=== PATIENT | male | born 1985 | race American Indian/Alaskan Native ===

== ENCOUNTER 2020-06-28 21:25 | Emergency (ER) | payer SELFPAY ==
[2020-06-29 00:05] VITALS: BP 125/78
--- NOTE | 2020-06-29 00:06 | Emergency Department Report ---
ED Male HPI - General Chief complaint: Urogenital-Male Stated complaint: SCRAPE IN PRIVATE AREA Source: patient Mode of arrival: Ambulatory Limitations: No Limitations - History of Present Illness Initial comments: Patient is a 34-year-old male with no past medical history presents to the ED with complaint of acute onset painful swollen ulcerated lesion in the penile shaft and glans penis after having "rough" sexual intercourse with his girlfriend about a week ago. Patient states that in the process of sexual intercourse he experience abrasions in the glans penis and the foreskin since he is not circumcised and that the swelling on the pain have worsened in the last 5 days. Patient states that he noticed that there was purulent discharge from the ulcerated lesion and decided come to the ED for evaluation. Patient denies fever, chills, nausea, vomiting, abdominal pain, testicular pain, scrotal swelling or pain, cough, sore throat, dysuria, urinary frequency and urgency or diarrhea. MD Complaint: penile discharge, other (painful penile shaft with ulcerated rash) -: Sudden, days(s) (5) Location: penis Radiation: none Severity: severe Severity scale (0 -10): 7 Quality: aching, burning, sharp Consistency: constant Improves with: none Worsens with: palpation, sexual intercourse new sexual partner denies other symptoms, discharge, rash (ulcerated lesion on penile shaft). denies: swelling, mass, urinary retention, blood in urine, dysuria, fever, nausea/vomiting, incontinence, other - Related Data Sexually active: Yes Previous Rx's Medication Instructions Recorded Last Taken Type Clindamycin [Clindamycin CAP] 300 mg PO Q8HR #60 capsule 06/29/20 Unknown Rx Nystatin Oint [Mycostatin Oint] 1 applicatio TP TID #1 tube 06/29/20 Unknown Rx metroNIDAZOLE [Flagyl TAB] 500 mg PO Q12HR #14 tab 06/29/20 Unknown Rx Allergies Allergy/AdvReac Type Severity Reaction Status Date / Time No Known Allergies Allergy Unverified 06/28/20 21:32 ED Review of Systems ROS: Stated complaint: SCRAPE IN PRIVATE AREA Other details as noted in HPI Constitutional: denies: chills, fever Eyes: denies: eye pain, eye discharge, vision change ENT: denies: ear pain, throat pain Respiratory: denies: cough, shortness of breath, wheezing Cardiovascular: denies: chest pain, palpitations Endocrine: no symptoms reported Gastrointestinal: denies: abdominal pain, nausea, diarrhea Genitourinary: denies: urgency, dysuria Musculoskeletal: denies: back pain, joint swelling, arthralgia Skin: rash (Ulcerated painful lesion on penile shaft and glans penis). denies: lesions, change in color, change in hair/nails, pruritus Neurological: denies: headache, weakness, paresthesias Psychiatric: denies: anxiety, depression Hematological/Lymphatic: denies: easy bleeding, easy bruising ED Past Medical Hx - Past Medical History Previous Medical History?: No - Surgical History Past Surgical History?: No - Social History Smoking Status: Never Smoker Substance Use Type: None - Medications Home Medications: Home Medications Medication Instructions Recorded Confirmed Last Taken Type Clindamycin [Clindamycin CAP] 300 mg PO Q8HR #60 capsule 06/29/20 Unknown Rx Nystatin Oint [Mycostatin Oint] 1 applicatio TP TID #1 tube 06/29/20 Unknown Rx metroNIDAZOLE [Flagyl TAB] 500 mg PO Q12HR #14 tab 06/29/20 Unknown Rx ED Physical Exam - General Limitations: No Limitations General appearance: alert, in no apparent distress - Head Head exam: Present: atraumatic, normocephalic, normal inspection - Eye Eye exam: Present: normal appearance, PERRL, EOMI Pupils: Present: normal accommodation - ENT ENT exam: Present: normal exam, normal orophraynx, mucous membranes moist, TM's normal bilaterally, normal external ear exam - Neck Neck exam: Present: normal inspection, full ROM - Respiratory Respiratory exam: Present: normal lung sounds bilaterally. Absent: respiratory distress, wheezes, rales, rhonchi, chest wall tenderness, accessory muscle use, decreased breath sounds, prolonged expiratory - Cardiovascular Cardiovascular Exam: Present: regular rate, normal rhythm, normal heart sounds. Absent: systolic murmur, diastolic murmur, rubs, gallop - GI/Abdominal GI/Abdominal exam: Present: soft, normal bowel sounds. Absent: tenderness, guarding, rebound, hyperactive bowel sounds, hypoactive bowel sounds, organomegaly, pulsatile mass - exam: Present: normal inspection External exam: Present: lesions (ulcerated tender lesion on penile shaft and glans) - Extremities Exam Extremities exam: Present: normal inspection, full ROM, normal capillary refill - Back Exam Back exam: Present: normal inspection, full ROM. Absent: tenderness, CVA tenderness (R), CVA tenderness (L), muscle spasm, paraspinal tenderness, vertebral tenderness - Neurological Exam Neurological exam: Present: alert, oriented X3, CN II-XII intact, normal gait, reflexes normal - Psychiatric Psychiatric exam: Present: normal affect, normal mood - Skin Skin exam: Present: warm, dry, intact, normal color, rash (Ulcerated tender penile lesions on shaft and glans with purulet discharge), erythema, vesicles ED Medical Decision Making - Medical Decision Making This is a 34-year-old male with no past medical history presents to the ED with complaint of acute onset painful swollen ulcerated lesion in the penile shaft and glans penis after having "rough" sexual intercourse with his girlfriend about a week ago. Patient states that in the process of sexual intercourse he experience abrasions in the glans penis and the foreskin since he is not circumcised and that the swelling on the pain have worsened in the last 5 days. Patient states that he noticed that there was purulent discharge from the ulcerated lesion and decided come to the ED for evaluation. In the ED, patient is alert and oriented x3 and is not in distress. Patient was discharged home on medications including antibiotics and antifungal cream and advised to follow-up with his primary care physician or [facility] department for further evaluation. Patient was advised to return to the ED immediately if symptoms get worse. - Differential Diagnosis Balanitis; Cellulitis; STD; Critical care attestation.: If time is entered above; I have spent that time in minutes in the direct care of this critically ill patient, excluding procedure time. ED Disposition Clinical Impression: Candidal balanitis, Balanitis Disposition: [id number] TO HOME OR SELFCARE Is pt being admited?: No Does the pt Need Aspirin: No Condition: Stable Instructions: Balanitis, Skin Yeast Infection Additional Instructions: Take medication with food, drink plenty of fluids and follow-up with your primary care physician in 7 to 10 days for reevaluation. Return to the ED immediately if symptoms get worse. Prescriptions: Clindamycin [Clindamycin CAP] 300 mg PO Q8HR #60 capsule metroNIDAZOLE [Flagyl TAB] 500 mg PO Q12HR #14 tab Nystatin Oint [Mycostatin Oint] 1 applicatio TP TID #1 tube Referrals: [facility] [Outside] - 3-5 Days [facility] [Provider Group] - 3-5 Days Time of Disposition: 00:17 Print Language: [place]
== END 2020-06-29 01:30 | disposition home or self-care (01) ==
LOC: ED 21:25
DX: B37.42 Candidal balanitis (principal)
CPT/HCPCS: 99281